=== PATIENT | female | born 1975 | race Caucasian/White ===

== ENCOUNTER → 2018-03-13 18:06 | Outpatient (CLI) | payer BC, SELFPAY ==
[2018-03-13 18:38] LABS: Basophils # 0.1 K/mm3 (0-0.2); Basophils % 0.9 % (0.1-2.0); Eosinophils # 0.2 K/mm3 (0.0-0.4); Eosinophils % 2.2 % (0.1-12.0); Hematocrit 52.1 % (37.0-47.0); Hemoglobin 16.8 g/dL (12.2-16.2); Lymphocytes # 2.4 K/mm3 (0.7-4.5); Lymphocytes % 25.6 % (10-50); Mean Corpuscular HGB Conc 32.2 g/dL (31.8-35.4); Mean Corpuscular Hemoglobin 29.6 pg (27.0-31.2); Mean Platelet Volume 7.2 fl (7.4-10.4); Monocytes # 0.5 K/mm3 (0.1-1.0); Monocytes % 4.7 % (1.7-9.3); Neutrophils # 6.3 K/mm3 (1.8-7.8); Neutrophils % 66.6 % (37.0-80.0); Platelet Count 304 K/mm3 (142-424); Red Blood Count 5.66 M/mm3 (4.20-5.40); Red Cell Distribution Width 13.4 % (11.5-17.5); White Blood Count 9.5 K/mm3 (4.8-10.8)
[2018-03-13 20:16] LABS: Alanine Aminotransferase 105 U/L (12-78); Albumin/Globulin Ratio 1.1 (1.1-1.8); Alkaline Phosphatase 80 U/L (46-116); Aspartate Amino Transferase 47 U/L (15-37); Bilirubin,Total 0.9 mg/dL (0.2-1.0); Blood Urea Nitrogen 7 mg/dL (7-18); Calcium 9.5 mg/dL (8.5-10.1); Carbon Dioxide 24 mmol/L (21.0-32.0); Chloride 102 mmol/L (98-107); Chol/HDL Ratio 5.5 (1-3.5); Cholesterol 197 mg/dL (140-200); Creatinine,Serum 0.94 mg/dL (0.55-1.02); Estimated Glomerular Filt Rate 65 ml/min (>60); Free T4 (Free Thyroxine) 0.95 ng/dl (0.76-1.46); GFR (African American) 79 ML/MIN (>60); Globulin 3.5 gm/dl (1.3-3.2); Glucose 117 mg/dL (74-106); HDL Cholesterol 36 mg/dL (29-89); LDL Cholesterol 114 mg/dL (0-130); Sodium 139 mmol/L (136-145); Thyroid Stimulating Hormone 1.42 uIU/ml (0.358-3.740); Total Protein,Serum 7.5 gm/dL (6.4-8.2); Triglycerides 236 mg/dL (30-200); VLDL Cholesterol 47 mg/dL (0-40)
[2018-03-15 11:45] LABS: Hemoglobin A1C 5.7 % (0.0-7.0)
[2018-03-16 08:47] LABS: Hep A Ab, IgM Negative (Negative); Hepatitis B Core Antibody IgM Negative (Negative); Hepatitis B Surface Antigen Negative (Negative)
[2018-03-16 17:09] LABS: Vitamin D 25 Hydroxy 11.8 ng/mL (30.0-100.0)
[2018-03-16 17:16] LABS: Hepatitis C Antibody <0.1 s/co ratio (0.0-0.9)
== END ==
PROVIDERS: Visit Provider Emergency Medicine
DX: E28.319 Asymptomatic premature menopause (principal); R53.83 Other fatigue; R63.5 Abnormal weight gain
CPT/HCPCS: 80053; 80061; 80074; 82652; 83036; 84439; 84443; 85025

== ENCOUNTER → 2018-08-14 15:58 | Outpatient (CLI) | payer BC, SELFPAY ==
--- NOTE | 2018-08-14 16:01 | MM_ITS ---
MM Dig screening mamm BI w/CAD CAD Screening COMPARISON: Digital mammograms with CAD 04/19/2016 and 01/28/2015 INDICATION: There is no personal or family history of breast cancer. There has been a previous cyst aspiration right breast. TECHNIQUE: Standard CC and MLO images were obtained. R2 CAD reviewed. FINDINGS: Scattered fibroglandular densities are seen throughout both breasts. There is a small area of asymmetric glandular tissue deep within the right breast at the location of the previous cyst aspiration which has no suspicious characteristics. There are no suspicious microcalcifications. IMPRESSION: Fibrofatty parenchyma no suspicious lesion seen BI-RADS Category: 1 Negative RECOMMENDED FOLLOW-UP: 1YR - 1 YEAR FOLLOW-UP (A letter has been sent to the patient regarding results of the study.)
== END ==
PROVIDERS: PCP Emergency Medicine; Visit Provider Obstetrics & Gynecology
DX: Z12.31 Encounter for screening mammogram for malignant neoplasm of breast (principal)
CPT/HCPCS: 77067

== ENCOUNTER → 2018-12-11 17:25 | Outpatient (CLI) | payer BC, SELFPAY ==
[2018-12-11 21:06] LABS: Amphetamine/Metha Screen,Urine Negative ng/mL (<1000); Barbiturates Screen,Urine Negative ng/mL (<200); Benzodiazepines Screen,Urine Negative ng/mL (<200); Cannabinoid Screen,Urine Negative ng/mL (<50); Cocaine Screen,Urine Negative ng/mL (<300); Methadone Screen,Urine Negative ng/mL (<300); Opiate Screen,Urine Negative ng/mL (<300); Phencyclidine Screen,Urine Negative ng/mL (<25)
== END ==
PROVIDERS: Visit Provider Nurse Practitioner Family
DX: F41.9 Anxiety disorder, unspecified (principal)
CPT/HCPCS: 80305

== ENCOUNTER 2020-01-24 12:35 | Emergency (ER) | payer BC, SELFPAY ==
[2020-01-24 13:30] VITALS: BP 134/94; PULSE 125; RESP 20; TEMP 36.9; O2SAT 97; BMI 32.3
--- NOTE | 2020-01-24 13:45 | HMH.EDUTC ---
[facility] [place] Impression: Nasal drainage Allergic rhinitis Qualifiers: Allergic rhinitis trigger: unspecified Allergic rhinitis seasonality: unspecified Qualified Code(s): J30.9 - Allergic rhinitis, unspecified Disposition: Home, Self-Care Condition on Discharge: Good Instructions: Allergic Rhinitis, DI for Allergic Rhinitis Additional Instructions: Drink plenty of fluids. Take tylenol for pain or fever. Take the medications as directed. Follow up with your regular doctor. GO TO THE ER FOR ANY WORSENING SYMPTOMS Prescriptions: Fluticasone Propionate [Flonase 50mcg nasal spray 16gm] 1 spr NS BID 30 Days #1 bottle Transmission Status: Received by [employer] predniSONE [Prednisone 20mg Tab] 20 mg PO BID 4 Days #8 tab Transmission Status: Received by [employer] Referrals: Sixto Rosen MD [Primary Care Provider] - Time of Disposition: 13:53 Medical Decision Making - Medical Records Medical records reviewed: No: I reviewed the patient's medical records. - Chris Inquiry Pt receiving controlled substance: No Vital Signs: 01/24/20 13:30 01/24/20 14:08 Temperature 98.4 F 98.4 F Temperature Source Oral Pulse Rate 125 H Pulse Rate [Right Brachial] 125 H Respiratory Rate 20 20 Blood Pressure 134/94 H Blood Pressure [Right Arm] 134/94 H Blood Pressure Mean [Right Arm] 107 Blood Pressure Source [Right Arm] Automatic Cuff Blood Pressure Position [Right Arm] Sitting 02 Sat by Pulse Oximetry 97 Oxygen Delivery Method Room Air [facility] [place] - General Stated complaint: Sinus issues Time Seen by Provider: 01/24/20 13:45 Mode of Arrival: Ambulatory Source of Information: Patient Limitations: No Limitations Description of Symptoms (Recalled from Triage Doc. by RN): PATIENT C/O EXCESSIVE CLEAR DRAINAGE FROM LEFT SIDE OF NOSE SINCE 01/12. SHE RECENTLY FINISHED AN ANTIBIOTIC FOR THIS PROBLEM BUT STATES IT IS NOT BETTER HEENT Symptoms (Recalled from RN notes): Yes Resp Symptoms (Recalled from RN notes): No Skin Symptoms (Recalled from RN notes): No MS Symptoms (Recalled from RN notes): No Functional Status (Recalled from RN notes): WNL - History of Present Illness Provider Complaint: She complains of nasal drainage over the past 2 weeks. She has taken azithromycin pack and it has not helped. She states that the drainage is clear. She denies any fever or chills or cough. - Related Data Previous Rx's Medication Instructions Recorded Fluticasone Propionate [Flonase 1 spr NS BID 30 Days #1 bottle 01/24/20 50mcg nasal spray 16gm] predniSONE [Prednisone 20mg 20 mg PO BID 4 Days #8 tab 01/24/20 Tab] Allergies Allergy/AdvReac Type Severity Reaction Status Date / Time No Known Allergies Allergy Verified 07/15/19 13:36 - Worker's Comp Is this a Worker's Comp case?: Yes [facility] History - Hepatitis A Screen Drug use history?: No High risk sexual behaviors?: No History of sexually transmitted infection?: No Currently employed?: No Childcare worker?: No Do you have indoor plumbing?: Yes Do you have electricity?: Yes Attestation statement:: This patient has been screened for Hepatitis A risk factors. I have reviewed the patient's past medical history: Yes Medical History: Reports:: Anxiety Other Medical History: Reports: Hypothyroidism, Other Comment: Endometriosis, vitamin d Other Surgeries: Yes: Other Amputation: No Fractures: No Comment: 2013- Dx. HSC, Fx. D&C, Dx. LSC, ADDIE - Social History Smoking Status: Current every day smoker # Packs/Day (cigarettes): 1 Alcohol Intake: never Alcohol Intake Frequency:: other Substance Use Type: denies use Occupational Status: other Housing: house Household Members: family - Psychiatric History Pschychiatric History:: Reports:: Anxiety Family Hx:: Coronary Artery Disease, Hypertension, Cancer ROS Obtained: Yes All systems reviewed & no additional complaints -
[2020-01-24 14:08] VITALS: BP 134/94; PULSE 125; RESP 20; TEMP 36.9; O2SAT 97
== END 2020-01-24 14:10 | disposition home or self-care (01) ==
PROVIDERS: Emergency Provider Nurse Practitioner Family; PCP Emergency Medicine
DX: R09.82 Postnasal drip (principal); J30.9 Allergic rhinitis, unspecified
CPT/HCPCS: 99201; U0003

== ENCOUNTER → 2020-02-03 14:56 | Outpatient (CLI) | payer BC, SELFPAY ==
--- NOTE | 2020-02-03 15:03 | CT_ITS ---
PROCEDURE: CT HEAD/BRAIN WO/W CON CLINICAL INDICATION: clear fluid drainaing from nose Clear fluid draining from the nose COMPARISON: No exams were available for comparison TECHNIQUE: IV Contrast: 100ML Isovue 370 Axial images obtained. All CT scans at the facility use one or more dose reduction, viz: automated exposure control, ma/kV adjustment per patient size (including targeted exams where dose is matched to indication, i.e. head), or iterative reconstruction technique. FINDINGS: No midline shift, mass effect, intracranial hemorrhage, hydrocephalus, or extra-axial fluid collection is evident. No enhancing lesions are evident. The calvarium has an unremarkable appearance. There is mild mucosal thickening involving the left maxillary sinus inferiorly and also involving the ethmoid sinuses. There is an air-fluid level in the left sphenoid sinus. No mastoid effusion is evident. IMPRESSION: 1. No acute intracranial findings. 2. There is an air-fluid level in the sphenoid sinus on the left. This could be seen with sequela from CSF rhinorrhea. Dedicated CT of the facial bones and skull base with thin sections may provide further evaluation to look for any bony defects which may be seen with CSF rhinorrhea. The current study was scanned by the routine head CT protocol. Dictated by: Marcos Moreno MD 02/03/2020 16:34 Marcos Moreno MD in [facility] 02/03/2020 16:34
== END ==
PROVIDERS: PCP Emergency Medicine; Visit Provider Otolaryngology
DX: G96.01 Cranial cerebrospinal fluid leak, spontaneous (principal)
CPT/HCPCS: 70470; Q9967

== ENCOUNTER → 2020-02-04 10:34 | Outpatient (CLI) | payer BC, SELFPAY ==
--- NOTE | 2020-02-04 10:41 | CT_ITS ---
PROCEDURE: CT FACIAL BONES WO/W CON CLINICAL HISTORY: CSF rhinorrhea COMPARISON: No exams were available for comparison TECHNIQUE: Axial images obtained with sagittal and coronal reformats. All CT scans at the facility use one or more dose reduction, viz: automated exposure control, ma/kV adjustment per patient size (including targeted exams where dose is matched to indication, i.e. head), or iterative reconstruction technique. FINDINGS: Thin-section axial images are obtained of the facial bones and skull base in this patient with CSF rhinorrhea. Air-fluid levels are present within the left aspect of the sphenoid sinus. No sinus or skull base fracture is evident. There is mild rightward nasal septal deviation. Small septal spur projects toward the right. Post enhanced images are obtained showing no evidence of abnormal enhancement or abnormal contrast localization/extravasation. No displaced cribriform plate fractures are apparent. No bony abnormal outpouchings. There is mucosal thickening involving the medial ethmoid air cells on the right IMPRESSION: 1. Air-fluid levels within the left sphenoid sinus. No bony defects apparent within the skull base or facial bones. 2. Mild mucosal thickening right ethmoid sinus with rightward nasal septal deviation. Dictated by: Marcos Moreno MD 02/04/2020 11:37 Marcos Moreno MD in [facility] 02/04/2020 11:37
== END ==
PROVIDERS: PCP Emergency Medicine; Visit Provider Otolaryngology
DX: G96.01 Cranial cerebrospinal fluid leak, spontaneous (principal)
CPT/HCPCS: 70488; Q9967

== ENCOUNTER → 2020-07-06 12:45 | Outpatient (CLI) | payer BC, SELFPAY ==
--- NOTE | 2020-07-06 12:45 | MM_ITS ---
PROCEDURE: MM DIG SCREENING MAMM BI W/CAD Digital Breast Tomosynthesis Included CLINICAL INDICATION: Breast cancer screening COMPARISON: MG DIG MAMM-SCREEN RONIT from 08/14/2018 TECHNIQUE: Standard CC and MLO images and 3D Tomosynthesis was obtained. R2 CAD reviewed. FINDINGS: The breasts are composed of scattered fibroglandular tissue. There is a focal nodular appearing density noted in the left central breast 4 centimeters from the nipple, new compared to the prior study. Slightly lobulated margins are noted. Bilateral mole markers are noted. No other dominant mass lesion, suspicious calcification or architectural distortion. IMPRESSION: Focal nodular appearing density in the left central breast, 4 centimeters from the nipple. BI-RAD Category: 0 Need Additional Imaging Evaluation FOLLOW-UP: Spot compression views and ultrasound of the left breast. (A letter has been sent to the patient regarding results of the study.) Dictated by: Keyanna Tabares 07/07/2020 16:04 Keyanna Tabares in [facility] 07/07/2020 16:04
== END ==
PROVIDERS: PCP Emergency Medicine; Visit Provider Emergency Medicine
DX: Z12.31 Encounter for screening mammogram for malignant neoplasm of breast (principal)
CPT/HCPCS: 77063; 77067

== ENCOUNTER → 2020-07-17 13:36 | Outpatient (CLI) | payer BC, SELFPAY ==
--- NOTE | 2020-07-17 13:41 | US_ITS ---
PROCEDURE: MM DIG MAMM DX UNILAT LT CAD Digital Breast Tomosynthesis Included Left breast ultrasound CLINICAL INDICATION: NODULES ON LT BREAST COMPARISON: MG DMSB DIG MAMM-SCREEN RONIT W/CAD from 04/19/2016 MG DIG MAMM-SCREEN RONIT from 08/14/2018 MG MM DIG SCREENING MAMM BI W/CAD from 07/06/2020 US US BREAST LT COMPLETE from 07/17/2020 TECHNIQUE: Diagnostic left breast mammogram and left breast ultrasound FINDINGS: Average fibroglandular tissue. There is a 1.2 cm benign-appearing nodule 4 cm posterior to the nipple. There is some minimal nodularity along the posterior aspect of this dominant nodule. This is in the medial aspect of the left breast. Nodule is fairly well-circumscribed without calcifications Left breast ultrasound: There is an 11 mm cyst at the 12 o'clock region near the nipple with some lobularity of the margins corresponding to the mammographic abnormality. No other significant anomalies are evident. IMPRESSION: Left breast nodule corresponds to a benign-appearing cyst. Would suggest a six-month sonographic and mammographic follow-up as there is some nodularity along the dorsal aspect of the nodule on the mammogram but could be related overlying fibroglandular tissue. BI-RAD Category: 3 Probably Benign Finding Short Term Follow-Up FOLLOW-UP: 6M 6 Month Follow-up (A letter has been sent to the patient regarding results of the study.) Dictated by: Marcos Moreno MD 07/20/2020 11:49 Marcos Moreno MD in [facility] 07/20/2020 11:49
== END ==
PROVIDERS: PCP Emergency Medicine; Visit Provider Emergency Medicine
DX: R92.8 Other abnormal and inconclusive findings on diagnostic imaging of breast (principal); N63.20 Unspecified lump in the left breast, unspecified quadrant
CPT/HCPCS: 76641; 77061; 77065; G0279

== ENCOUNTER → 2021-03-19 08:32 | Outpatient (CLI) | payer BC, SELFPAY | PROVIDERS: Visit Provider Nurse Practitioner | DX: U07.1 COVID-19 (principal) | CPT/HCPCS: C9803; U0003; U0005 ==

== ENCOUNTER 2021-09-20 11:01 | Emergency (ER) | payer BC, SELFPAY ==
--- NOTE | 2021-09-20 11:03 | XR_ITS ---
FINAL REPORT CLINICAL HISTORY: pain FINDINGS: Three views of the right shoulder were obtained. There is no prior exam for comparison. There is no fracture or dislocation. The joint space is preserved. Soft tissues are normal. IMPRESSION: No acute osseous abnormality of the right shoulder. Reviewed, Interpreted and Dictated by Kiara Ramirez MD Transcribed by Mahsa Ramey Authenticated and . [facility]
[2021-09-20 11:08] VITALS: BMI 32.3
[2021-09-20 11:20] VITALS: BP 151/97; PULSE 107; RESP 20; TEMP 36.9; O2SAT 97; BMI 32.3
--- NOTE | 2021-09-20 11:44 | HMH.EDUTC ---
[facility] [place] Disposition Clinical Impression: Shoulder strain Qualifiers: Encounter type: initial encounter Laterality: right Qualified Code(s): S46.911A - Strain of unspecified muscle, fascia and tendon at shoulder and upper arm level, right arm, initial encounter Disposition: Home, Self-Care Condition on Discharge: Good Instructions: Muscle Strain, DI for Muscle Strain, Cyclobenzaprine, Ibuprofen Additional Instructions: *Ibuprofen stephany 6 hours with meal as needed for pain/inflammation *Not additional anti-inflammatory like motrin, aleve, advil with the above amount of ibuprofen. You can still take Tylenol every 4 hours as needed if you need something else for pain *Ice 20 minutes every 2 hours for the first 48 hours after the initial injury followed by moist heat every 20 minutes 3-4 times a day to affected area *Muscle relaxer every 8 hours as needed for muscle spasms but remember, it WILL cause drowsiness You cannot take it and drive, operate machinery or care for small children. *Keep this area active, no movement leads to more stiffness, However take it easy and avoid heavy lifting pushing or pulling *Follow up with you family doctor if no improvement for further treatment Return if needed Straight to ER if any life threatening symptoms Prescriptions: Ibuprofen [Ibuprofen 600mg Tablet] 600 mg PO Q6HP PRN #20 tab PRN Reason: Moderate Pain Transmission Status: Pending to [facility] Cyclobenzaprine HCl [Flexeril 10mg tablet] 10 mg PO Q8HP PRN #15 tab PRN Reason: Muscle Spasm Transmission Status: Pending to [facility] Referrals: Sixto Rosen MD [Primary Care Provider] - As needed Time of Disposition: 11:52 Medical Decision Making - Chris Inquiry Pt receiving controlled substance: No Chris was queried for this patient: No Vital Signs: 09/20/21 11:20 Temperature 98.4 F Temperature Source Oral Pulse Rate [Right Brachial] 107 H Respiratory Rate 20 Blood Pressure [Right Arm] 151/97 H Blood Pressure Mean [Right Arm] 115 Blood Pressure Source [Right Arm] Automatic Cuff Blood Pressure Position [Right Arm] Sitting 02 Sat by Pulse Oximetry 97 Oxygen Delivery Method Room Air Orders (Tests/Meds): ORDERS Category Date Time Status Shoulder XR right miminum 2 views [XR shoulder RT min Exams 09/20/21 11:03 Taken 2V] Stat - Radiology Data #1 Image(s): Shoulder Image Reviewed: Yes I reviewed the patient's radiology image Preliminary Findings: No Fracture Seen Medical Decision Narrative: Denies chance of [facility] [place] HPI - General Stated complaint: shoulder pain Time Seen by Provider: 09/20/21 11:40 Mode of Arrival: Ambulatory Source of Information: Patient Limitations: No Limitations Description of Symptoms (Recalled from Triage Doc. by RN): PATIENT C/O RIGHT SHOULDER PAIN SINCE MONDAY. SHE THINKS SHE MAY HAVE PULLED SOMETHING HEENT Symptoms (Recalled from RN notes): No Resp Symptoms (Recalled from RN notes): No Skin Symptoms (Recalled from RN notes): No MS Symptoms (Recalled from RN notes): Yes Functional Status (Recalled from RN notes): WNL - History of Present Illness Provider Complaint: Patient states that she was opening the bathroom door at [facility] on when she felt something lesly in her right shoulder area States that now she is having pain on and off in right shoulder and worse with certain ways she moves it States that today it was still bothering her so she came in to get it checked - Related Data Previous Rx's Medication Instructions Recorded clobetasol 0.05 % topical cream 1 applic TOPICAL DAILY #60 g 07/30/20 Cyclobenzaprine HCl [Flexeril 10mg 10 mg PO Q8HP PRN #15 tab 09/20/21 tablet] Ibuprofen [Ibuprofen 600mg 600 mg PO Q6HP PRN #20 tab 09/20/21 Tablet] Allergies Allergy/AdvReac Type Severity Reaction Status Date / Time No Known Allergies Allergy Verified 07/30/20 13:28 - Worker's Comp
[2021-09-20 11:58] VITALS: BP 151/97; PULSE 107; RESP 20; TEMP 36.9; O2SAT 97
== END 2021-09-20 12:04 | disposition home or self-care (01) ==
PROVIDERS: Emergency Provider Nurse Practitioner; PCP Emergency Medicine
DX: S46.911A Strain of unspecified muscle, fascia and tendon at shoulder and upper arm level, right arm, initial encounter (principal); X50.9XXA Other and unspecified overexertion or strenuous movements or postures, initial encounter
CPT/HCPCS: 73030; 99212; G0463

== ENCOUNTER → 2022-04-14 12:55 | Outpatient (CLI) | payer BC, SELFPAY ==
--- NOTE | 2022-04-14 12:55 | MM_ITS ---
PROCEDURE INFORMATION: Exam: MG Bilateral Screening 3D Mammography Exam date and time: 04/14/2022 12:50 PM Age: 46 years old Clinical indication: Screening examination TECHNIQUE: Imaging protocol: Bilateral Screening tomosynthesis and 2D mammography including computer-aided detection (CAD) when performed. COMPARISON: 1. MG MM DIG MAMM DX UNILAT LT CAD 07/17/2020 2:00 PM 2. MG MM DIG SCREENING MAMM BI W/CAD 07/06/2020 1:00 PM FINDINGS: MAMMOGRAPHY: Breast composition: The breasts are almost entirely fatty. Mass: None. Architectural distortion: None. Calcifications: No suspicious calcifications. Asymmetric density: None. Skin thickening: None. Axillary adenopathy: None. IMPRESSION: No mammographic evidence of malignancy. Annual screening is recommended unless otherwise clinically indicated. ASSESSMENT: BI-RADS Category 1: Negative
== END ==
PROVIDERS: PCP Physician Assistant; Visit Provider Obstetrics & Gynecology
DX: Z12.31 Encounter for screening mammogram for malignant neoplasm of breast (principal)
CPT/HCPCS: 77063; 77067

== ENCOUNTER → 2022-04-18 14:35 | Outpatient (CLI) | payer BC, SELFPAY ==
[2022-04-20 05:29] LABS: FSH 7.6 mIU/mL (.)
== END ==
PROVIDERS: PCP Emergency Medicine; Visit Provider Obstetrics & Gynecology
DX: Z01.419 Encounter for gynecological examination (general) (routine) without abnormal findings (principal); N91.2 Amenorrhea, unspecified
CPT/HCPCS: 36415; 82670; 83001

== ENCOUNTER 2022-11-11 04:37 | Emergency (ER) | payer BC, SELFPAY ==
[2022-11-11 04:38] VITALS: BP 170/91; PULSE 140; RESP 20; O2SAT 95; BMI 33.9
--- NOTE | 2022-11-11 05:18 | HMH.EDGENADL ---
Discharge Plan Disposition Patient Disposition: Home, Self-Care Condition: Good Prescriptions Prescriptions: No Action sulfamethoxazole-trimethoprim [Bactrim DS] 800-160 mg tablet 1 tab PO Q12H 10 Days Qty: 20 0RF ibuprofen 600 mg tablet 600 mg PO Q6HP PRN (Reason: Moderate Pain) Qty: 20 0RF Referrals Follow up/Referrals: Sixto Rosen MD [Primary Care Provider] - See instructions Activity Restrictions/Add. Instructions Additional Instructions/Restrictions: Please continue taking antibiotics as prescribed. Recommend following up with [facility]. Please keep packing in place for 2 days. If it is still in place at that time please remove it. Please follow-up with your primary care provider. Please return to the emergency department if you develop any new or worsening symptoms or become concerned for your health. Clinical Impressions Clinical Impression: Abscess of left Bartholin's gland Instructions Patient Instructions: DI for Urinary Tract Infection (UTI), DI for Urinary Tract Infection in Children Discharge ED Provider: Jay Villa Adult HPI General Chief complaint: Urogenital-Female Stated complaint: vaginal pain Time Seen by Provider: 11/11/22 04:40 Mode of Arrival: Ambulatory Source of Information: Patient Limitations: No Limitations Description of Symptoms (Recalled from ER Triage Doc. by RN): Pt states she has a boil on her labia, was seen by Dr Pelaez on Monday and given abx. Pt complains of increased pain History of Present Illness HPI narrative: 47-year-old female presents with vaginal complaint. She reports that she has a bulge and severe pain in her left labia. She was seen by [facility] on Monday and was offered drainage versus antibiotic therapy. She did not receive drainage and has been taking Bactrim as prescribed for the last couple of days without improvement. No reported fever or systemic symptoms. She reports nothing like this is happened before. Related Data Previous Rx's Medication Instructions Recorded ibuprofen 600 mg tablet 600 mg PO Q6HP PRN Moderate Pain 09/27/21 #20 tabs sulfamethoxazole 800 1 tab PO Q12H 10 days #20 tabs 11/09/22 mg-trimethoprim 160 mg tablet (Bactrim DS) Allergies Allergy/AdvReac Type Severity Reaction Status Date / Time No Known Allergies Allergy Verified 11/09/22 11:36 [facility] Disclaimer: The information contained in this section may have been updated after the patient was seen, as this information can be updated by other users. Medical History Abscess of vagina Allergic rhinitis Anxiety History of endometriosis Vitamin D deficiency Surgical History History of nasal surgery CSF leak Family History Mother Cancer Coronary artery disease Father Cancer Other Stroke Social History Smoking Status: Current every day smoker alcohol intake: never substance use type: denies use current occupational status: other Travel in the last 8 weeks: None household members: family housing: house ROS Obtained: Yes All systems reviewed & no additional complaints except as documented Physical Exam General General appearance: alert and anxious Head Head exam: atraumatic and normocephalic Eye Eye exam: Present normal appearance, PERRL and EOMI ENT ENT exam: Present normal oropharynx and normal external ear exam Neck Neck exam: Present normal inspection and full ROM Chest Chest inspection: Present normal inspection and symmetric chest wall rise; Absent tenderness Respiratory Respiratory exam: Present normal lung sounds bilaterally; Absent respiratory distress Cardiovascular Cardiovascular exam: Present regular rate and normal rhythm Abdominal Exam Abdominal exam: Present soft; Ab
[2022-11-11 05:19] VITALS: BP 168/72; PULSE 94; RESP 20; TEMP 36.6; O2SAT 100
== END 2022-11-11 05:23 | disposition home or self-care (01) ==
PROVIDERS: Emergency Provider Emergency Medicine; PCP Emergency Medicine
DX: N75.1 Abscess of Bartholin's gland (principal); F41.9 Anxiety disorder, unspecified; F17.200 Nicotine dependence, unspecified, uncomplicated
CPT/HCPCS: 56420; 99282

== ENCOUNTER 2023-08-04 12:57 | Outpatient (CLI) | payer BC, SELFPAY ==
--- NOTE | 2023-08-04 12:58 | MM_ITS ---
PROCEDURE INFORMATION: Exam: MG Bilateral Screening 3D Mammography Exam date and time: 08/04/2023 12:50 PM Age: 48 years old Clinical indication: Screening examination TECHNIQUE: Imaging protocol: Bilateral Screening tomosynthesis and 2D mammography including computer-aided detection (CAD) when performed. COMPARISON: 1. MG MM DIG SCREENING MAMM BI W/CAD 04/14/2022 12:50 PM 2. MG MM DIG MAMM DX UNILAT LT CAD 07/17/2020 2:00 PM FINDINGS: MAMMOGRAPHY: Breast composition: There are scattered areas of fibroglandular density. Mass: None. Architectural distortion: None. Calcifications: No suspicious calcifications. Asymmetric density: None. Skin thickening: None. Axillary adenopathy: None. IMPRESSION: No mammographic evidence of malignancy. Annual screening is recommended unless otherwise clinically indicated. ASSESSMENT: BI-RADS Category 1: Negative
== END 2023-08-04 23:59 | disposition home or self-care (01) ==
LOC: RAD 12:58
PROVIDERS: PCP Physician Assistant; Visit Provider Obstetrics & Gynecology
DX: Z12.31 Encounter for screening mammogram for malignant neoplasm of breast (principal)
CPT/HCPCS: 77063; 77067

== ENCOUNTER 2023-09-20 13:33 | Outpatient (RCR) | payer BC, SELFPAY ==
--- NOTE | 2023-09-20 14:40 | HMH.PTOPEV ---
PT Outpatient Evaluation Rehab PT Outpatient Evaluation Start: 09/20/23 14:31 Freq: Status: Active Protocol: Document 09/20/23 14:32 PHOLUZ (Rec: 09/20/23 14:40 PHORMICHAEL [id number]) E-signed By Ta Sanchez, PT Outpatient Therapy Subjective History Subjective History This is the initial PT eval for Stefania Nguyen, 48 yowf who presents with c/o feeling dizzy and off balance all the time. She reports symptoms have been present x ~ 10 yrs overall and intermittently worse. She reports having some form of infection on the R side of her face/neck with considerable swelling which was initially thought to be mumps, prior to the start of these symptoms. 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 She reports the symptoms are worse with her eyes closed or laying down in bed. And she described a sensation of off balance without any vertigo or nausea associated. New diagnosis of cancer in past 12 No months? Chief Complaint Other Level of pain today (0-10) 0 Pain scale - at its worst (0-10) 0 Balance Eval Nystagmus Nystagmus Presence None Oculomotor Gaze Oculomotor Gaze Nml: Vergence Smooth Pursuit Saccades VOR Cancellation Cover/Uncover Cross Cover [place] Feet Together/Eyes open/Stable Surface pass Feet Together/Eyes Closed/Stable Surface pass Feet Together/Eyes open/Unstable Surface pass Feet Together/Eyes Closed/Unstable pass Surface Dynamic Gait Index Test Protocol Gait Level Surface Normal Query Text: Instructions: Walk at your normal speed from here to the next mee (20'). Grading: Mee the lowest category that applies. Change in Gait Speed Normal Query Text: Instructions: Begin walking at your normal pace (for 5'), when I tell you go , walk as fast as you can (for 5'). When I tell you slow , walk as slowly as you can (for 5'). Grading: Mee the lowest category that applies. Gait with Horizontal Head Turns Normal Query Text: Instructions: Begin walking at your normal pace. When I tell you to look right , keep walking straight, but turn you head to the right. Keep looking to the right unit I tell you look left , then keep walking straight and turn your head to the left. Keep your head to the left until I tell you look straight , then keep walking straight, but return you head to the center. Grading: Mee the lowest category that applies. Gait with Vertical Head Turns Normal Query Text: Instructions: Begin walking at your normal pace. When I tell you to look up , keep walking staight, but tip your head up. Keep looking up until I tell you to look down , then keep walking straight and tip your head down. Keep your head down until I tell you look straight , then keep walking straight, but return your head to the center. Grading: Mee the lowest category that applies. Gait and Pivot Turn Normal Query Text: Instructions: Begin walking at your normal pace. When I tell you turn and stop , turn as quickly as you can to face the opposite direction and stop. Grading: Mee the lowest category that applies. Step Over Obstacle Normal Query Text: Instructions: Begin walking at your normal speed. When you come to the shoebox, step over it, not around it and keep walking. Grading: Mee the lowest category that applies. Step Around Obstacles Normal Query Text: Instructions: Begin walking at normal speed. When you come to the first cone (about 6' away), walk around the right side of it. When you come to the second cone (6' past first cone), walk around it to the left. Grading: Mee the lowest category that applies. Steps Normal Query Text: Instructions: Walk up these stairs as you would at home. At the top, turn around and walk down. Grading: Mee the lowest category that applies. Scoring Dynamic Gait Index Score 24 Miscellaneous Dx PT Eval Objective Objective [place] hallpike and horizontal roll testing performed with no nystagmus noted. No symptoms reproduction with any certain position or occulomotor testing this date. Outpatient Therapy Assessment Impairments Problems/Impairmments Impaired Balance,Impaired Self Care/Self Management Prognosis Rehab Potential Innapropriate for Skilled Therapy Comment Currently unable to reproduce pt symptoms with any vestibular testing available to myself at this time. No current needs for outpatient therapy for vestibular retraining. Clinical Impression Consistent with Diagnosis Yes Outpatient Therapy Plan of Care Treatment Plan May Include Eval/Re-Eval Yes Frequency Times per week 0 Duration Number of Weeks 0 Addendums This patient is a candidate for social No or vocational rehab? Patient/Guardian verbally acknowledges Yes understanding of treatment program and consents to further treatment? Patient/Guardian verbally acknowledges Yes understanding of diagnosis, prognosis and goals for treatment? Eval Complexity PT Charges 51764 - High Complexity Shoulder/Elbow Eval Shoulder Objective Measurements Elbow Objective Measurements PHYSICIAN CERTIFICATION: I certify the specified therapy services for Stefania Nguyen are required, authorized, and reviewed every 30 days.
== END 2023-09-20 13:35 | disposition home or self-care (01) ==
LOC: PT 13:33
PROVIDERS: Visit Provider Nurse Practitioner
DX: R42 Dizziness and giddiness (principal)
CPT/HCPCS: 97163

== ENCOUNTER 2024-09-25 11:07 | Outpatient (CLI) | payer MEDICAID, SELFPAY ==
--- OUTSIDE RECORDS SUMMARY | 2024-09-25 11:10 | XMS_ITS | Clinical Summary ---
Author Organization [facility] Address [address] [id number] Care Team Providers Care Venetian Blind Cleaner Name Role Phone Sixto Rosen MD Primary Care Provider [phone] Allergies No known active allergies Medications No known medications Active Problems Problem Noted Date Diagnosed Date Obesity (BMI 35.0-39.9 without comorbidity) 10/29 Severe obesity (BMI 35.0-39.9) with comorbidity 11/22/2023 Family History Medical History Relation Name Comments Cancer Father Relation Name Status Comments Father Social History Tobacco Use Types Packs/Day Years Used Date Smoking Tobacco: Every Day Smokeless Tobacco: Never Tobacco Cessation:Ready to Q uit: Not Asked; Counseling Given: Not Answered Alcohol Use Standard Drinks/Week Comments No 0 (1 standard drink = 0.6 oz pur e alcohol) Comments Unknown Sex and Gender Information Value Date Recorded Sex Assigned at Female 03/06/2021 6:41 PM EST Legal Sex Female 8:04 PM EDT Gender Identity Female 03/06/2021 6:41 PM EST Sexual Orientation Straight 03/06/2021 6: 41 PM EST Last Filed Vital Signs Vital Sign Reading Time Taken Comments Blood Pressure 151/94 09/26/2022 8:49 AM EDT Pulse 101 09/26/2022 8:49 AM EDT Temperature - - Respiratory Rate - - Oxygen Saturation 100% 04/02/2020 1:21 PM EST Inhaled Oxygen Concentration - - Weight 99.8 kg (220 lb) 11/22/2023 1:36 PM EDT Height 167.6 cm (5' 6 ) 11/22/2023 1:36 PM EDT Body Mass Index 35.51 11/22/2023 1:36 PM EDT Plan of Treatment Health Maintenance Due Date Last Done Comments [facility]-Depression Screening 1975 [facility]-HIV Screening 1975 [facility]-Hepatitis C Screening 1975 [facility]-/Child/Adol SDOH Screenings 1975 [facility]- SDOH Screenings 07/28/1993 [facility]-Adult SDOH Screenings 07/28/1993 [facility]-DTaP,Tdap,and Td Vaccine s (1 - Tdap) 07/28/1994 [facility]-Hepatitis B Vaccines (1 of 3 - 19+ 3-dose series) 07/28/1994 [facility]-Pneumococcal Vaccine: Pediatrics (0 to 5 Years) and At-Risk Patients (6 to 49 Years) (1 of 2 - PCV) 07/28/1994 [facility]-Pap Smear 07/28/1996 [facility]-Cervical Cancer Screening 07/28/2005 [facility]-HPV/Cotest 07/28/2005 CT Colonography 07/28/2020 Colonoscopy 07/28/2020 FIT-DNA 07/28/2020 FIT 07/28/2020 FOBT 07/28/2020 Sigmoidoscopy 07/28/2020 [facility]-Colorectal Cancer Screening 07/28/2020 [id number] Vaccine ( season) 2023 11/20/2020, 10/30/2020 [facility]-Influenza Vaccine (#1) 10/28/202412/11, 03/13/2018 [facility]-Zoster Vaccines (1 of 2) 07/28/2025 [facility]-Obesity Intervention Completed 024, 09/26/2022 HPV Vaccines Aged Out No longer eligi ble based on patient's age to complete this topic [facility]-HIB Vaccines Aged Out No longer e ligible based on patient's age to complete this topic [facility]-Hepatitis A Vaccines Aged Out No longer eligible based on patient's age to complete this topic [facility]-IPV Vaccines Aged Out No longer e ligible based on patient's age to complete this topic [facility]-Rotavirus Vaccines Aged Out No lo nger eligible based on patient's age to complete this topic Care Teams Venetian Blind Cleaner Relationship Specialty Start Date End Date Sixto Rosen MD [address] [place] [id number] [facility] - General 07/10/20
--- OUTSIDE RECORDS SUMMARY | 2024-09-25 11:10 | XMS_ITS | Clinical Summary ---
Author Organization [facility] Address [address] [place] [address] Care Team Providers Care Cardroom Plastic Card Grader Name Role Phone Sixto Rosen MD Primary Care Provider [phone] Source Comments This information has been disclosed to you from confidential records protectedfrom disclosure by state law. You shall make no further disclosure of thisinformation without the specific, written, and informed release of theindividual to whom it pertains, or as otherwise permitted by law. A generalauthorization for the release of medical or other information is not sufficientfor the purposes of therelease of HIV test results or diagnoses. [id number] Allergies No known active allergies Medications clobetasoL (TEMOVATE) 0.05 % cream 01/20/2020 Active fluticasone propionate (FLONASE) 50 mcg/actuation nasal spray 01/24/2020 Active hydrOXYzine pamoate (VISTARIL) 25 MG capsule 09/20/2019 Activ e loratadine (CLARITIN) 10 mg tablet 01/31/2020 Active predniSONE (DELTASONE) 20 MG tablet 01/24/2020 Active cefdinir (OMNICEF) 300 MG capsule 01/31/2020 Acti ve Social History Tobacco Use Types Packs/Day Years Used Date Smoking Tobacco: Every Day Cigarettes Smokeless Tobacco: Never Alcohol Use Standard Drinks/Week Comments Not Currently 0 (1 standard drink = 0.6 oz pur e alcohol) Comments Unknown Sex and Gender Information Value Date Recorded Sex Assigned at Not on file Legal Sex Female 4:10 PM EST Gender Identity Not on file Sexual Orientation Not on file Last Filed Vital Signs Vital Sign Reading Time Taken Comments Blood Pressure 132/97 02/13/2020 3:55 PM EST Pulse 118 02/13/2020 3:55 PM EST Temperature 37.1 C (98.8 F) 02/13/2020 3:55 PM EST Respiratory Rate 16 02/13/2020 3:55 PM EST Oxygen Saturation 97% 02/13/2020 3:55 PM EST Inhaled Oxygen Concentration 97% 02/13/2020 3 :55 PM EST Weight 90.3 kg (199 lb) 02/13/2020 3:55 PM EST Height 172.7 cm (5' 8 ) 02/13/2020 3:55 PM EST Body Mass Index 30.26 02/13/2020 3:55 PM EST Plan of Treatment Not on file Care Teams Cardroom Plastic Card Grader Relationship Specialty Start Date End Date Sixto Rosen MD [address] [place] [address] PCP - General Emergency Medicine 02/04/20
[2024-09-25 12:50] LABS: 25-OH Vitamin D, Total 29.5 ng/mL (30-100)
[2024-09-25 13:05] LABS: Thyroid Stimulating Hormone 0.94 uIU/mL (0.465-4.68)
[2024-09-26 11:22] LABS: FSH 19.3 mIU/mL (.); LH 22.4 mIU/mL (.)
== END 2024-09-25 23:59 | disposition home or self-care (01) ==
LOC: LAB 11:08
PROVIDERS: Visit Provider Obstetrics & Gynecology
DX: N93.9 Abnormal uterine and vaginal bleeding, unspecified (principal)
CPT/HCPCS: 36415; 82306; 82670; 83001; 83002; 84144; 84402; 84443

== ENCOUNTER 2024-10-07 07:58 | Outpatient (CLI) | payer MEDICAID, SELFPAY ==
--- NOTE | 2024-10-07 08:00 | US_ITS ---
PROCEDURE: US TRANSVAGINAL CLINICAL INDICATION: AUB COMPARISON: No exams were available for comparison FINDINGS: Transvaginal sonographic images of the pelvis were obtained. UTERUS: 6.1cm x 5.0cmx 4.3cm retroverted with a combined endometrial thickness of 2.2mm. There is a small anterior fibroid measuring 0.9 cm x 0.5 cm x 0.8 cm. LEFT OVARY: 1.9 cmx2.3cmx2.4cm with a volume of 5.4ml. There is a dominant follicle measuring 1.6 cm x 1.6 cm x 2.1 cm RIGHT OVARY: 3.1cmx 1.9 cmx1.4cm with a volume of 4.4ml. Both ovaries are seen and appear normal. Doppler flow to both ovaries are seen. There is no fluid in the cul-de-sac. IMPRESSION: 1. Retroverted uterus normal in shape and size. The endometrium is thin measuring 2.2 mm. 2. There is a small 0.9 cm intramural fibroid in the anterior uterus. 3. Both ovaries are seen and appear normal. There is a dominant follicle in the left ovary measuring 2.1 cm. 4. No fluid in the cul-de-sac. Dictated by: Sage Zhang MD 10/07/2024 15:01 Sage Zhang MD in OV 10/07/2024 15:01
--- OUTSIDE RECORDS SUMMARY | 2024-10-07 08:00 | XMS_ITS | Clinical Summary ---
Author Organization [facility] Address [address] [place] [address] Care Team Providers Care Tmd Teacher Name Role Phone Sixto Rosen MD Primary Care Provider [phone] Source Comments This information has been disclosed [...] therelease of HIV test results or diagnoses. [id number] Allergies No known active allergies Medications [...] of Treatment Not on file Care Teams Tmd Teacher Relationship Specialty Start Date End Date Sixto Rosen MD [address] [place] [place] [address] PCP - General Emergency Medicine 02/04/20
--- OUTSIDE RECORDS SUMMARY | 2024-10-07 08:00 | XMS_ITS | Clinical Summary ---
Author Organization [facility] Address [address] [id number] Care Team Providers Care Ferry Terminal Agent Name Role Phone Sixto Rosen MD Primary Care Provider [phone] Allergies No known active allergies Medications No [...] 07/28/2020 Sigmoidoscopy 07/28/2020 [facility]-Colorectal Cancer Screening 07/28/2020 [id number] Vaccine ( season) 2023 11/20/2020, 10/30/2020 [facility]-Influenza [...] age to complete this topic Care Teams Ferry Terminal Agent Relationship Specialty Start Date End Date Sixto Rosen MD [address] [place] [address] [facility] - General 07/10/20
== END 2024-10-07 23:59 | disposition home or self-care (01) ==
LOC: RAD 07:59
PROVIDERS: PCP Obstetrics & Gynecology; Visit Provider Obstetrics & Gynecology
DX: N93.9 Abnormal uterine and vaginal bleeding, unspecified (principal); Z12.31 Encounter for screening mammogram for malignant neoplasm of breast; D25.9 Leiomyoma of uterus, unspecified
CPT/HCPCS: 76830; 77063; 77067

== ENCOUNTER 2024-12-04 12:26 | Outpatient (CLI) | payer MEDICAID, SELFPAY ==
--- NOTE | 2024-12-04 12:29 | CT_ITS ---
FINAL REPORT TECHNIQUE: Axial images of the chest was performed with and without contrast. Reconstructed images were obtained and reviewed. This study was performed with techniques to keep radiation doses as low as reasonably achievable, (ALARA). Individualized dose reduction techniques using automated exposure control or adjustment of mA and/or kV according to the patient's size were employed. CLINICAL HISTORY: PERSISTENT COUGH/ HX NICOTINE FINDINGS: There is no evidence of lymphadenopathy. There is no pleural or pericardial effusion. The heart is normal in size. There is left lower lobe subpleural 5 mm nodule on series 4, image 63. There is a 4 mm nodule just posterior to the left major fissure well-seen on image 30. There is a focal ground glass opacity in the anterior right upper lobe. Subpleural nodule along the right minor fissure measures 4 mm on series 4, image 47. Limited images of the upper abdomen reveal fatty liver. IMPRESSION: Focal ground glass opacity in the right upper lobe, could be infectious or inflammatory. This can be followed if indicated. Bilateral subcentimeter pulmonary nodules. Recommend 6 to 12-month follow-up as per Fleischner criteria. Reviewed, Interpreted and Dictated by Kiara Ramirez MD Transcribed by Keyonna Womack Authenticated and [facility]
[2024-12-04 12:58] LABS: Blood Urea Nitrogen 9 mg/dl (7-17); Creatinine,Serum 0.90 mg/dl (0.52-1.04); Estimated Glomerular Filt Rate 67 ml/min (>60); GFR (African American) 81 ML/MIN (>60)
[2024-12-04] MEDS: IOPAMIDOL-370 (76%);100ML BOTTLE 75 ML IV (13:34)
[2024-12-04] MEDS: SODIUM CHLORIDE 0.9% 10ML SYR (RAD ONLY) 10 ML IV (13:34)
== END 2024-12-04 23:59 | disposition home or self-care (01) ==
LOC: RAD 12:26
PROVIDERS: PCP Internal Medicine Adolescent Medicine; Visit Provider Internal Medicine Adolescent Medicine
DX: R91.8 Other nonspecific abnormal finding of lung field (principal); R05.3 Chronic cough; Z87.891 Personal history of nicotine dependence
CPT/HCPCS: 36415; 71270; 82565; 84520; Q9967

== ENCOUNTER 2025-01-15 11:32 | Outpatient (CLI) | payer MEDICAID, SELFPAY ==
--- OUTSIDE RECORDS SUMMARY | 2025-01-15 12:49 | XMS_ITS | Clinical Summary ---
Author Organization [facility] Address [address] [place] [address] Care Team Providers Care Bobbin Winder Name Role Phone Sixto Rosen MD Primary Care Provider [phone] Source Comments This information has been disclosed [...] therelease of HIV test results or diagnoses. [id number] Allergies No known active allergies Medications [...] of Treatment Not on file Care Teams Bobbin Winder Relationship Specialty Start Date End Date Sixto Rosen MD [address] [place] [address] PCP - General Emergency Medicine 02/04/20
--- OUTSIDE RECORDS SUMMARY | 2025-01-15 12:49 | XMS_ITS | Clinical Summary ---
Author Organization [facility] Address [address] [id number] Care Team Providers Care Associate Director Of Development Name Role Phone Sixto Rosen MD Primary Care Provider [phone] Allergies No known active allergies Medications No [...] [facility]-HIV Screening 1975 [facility]-Hepatitis C Screening 1975 [facility]-Infant/Child/Adol SDOH Screenings 1975 [facility]- SDOH Screenings 07/28/1993 [facility]-Adult SDOH Screenings 07/28/1993 [facility]-DTaP,Tdap,and Td Vaccine s (1 - Tdap) 07/28/1994 [facility]-Hepatitis B Vaccines (1 of 3 - 19+ 3-dose series) 07/28/1994 [facility]-Pap Smear 07/28/1996 [facility]-Cervical Cancer Screening 07/28/2005 [facility]-HPV/Cotest 07/28/2005 CT Colonography 07/28/2020 Colonoscopy 07/28/2020 FIT-DNA 07/28/2020 FIT 07/28/2020 FOBT 07/28/2020 Sigmoidoscopy 07/28/2020 [facility]-Colorectal Cancer Screening 07/28/2020 [id number] Vaccine (3 - 2024- season) 2024 11/20/2020, 10/30/2020 [facility]-Influenza Vaccine (#1) 10/28/202412/11, 03/13/2018 [...] on patient's age to complete this topic [facility]-Pneumococcal Vaccine: Pediatrics (0 to 5 Years) and At-Risk Patients (6 to 49 Years) Aged Out No longer eligible b ased on patient's age to complete this topic [facility]-Rotavirus Vaccines Aged Out No lo nger eligible based on patient's age to complete this topic Care Teams Associate Director Of Development Relationship Specialty Start Date End Date Sixto Rosen MD NPI: [id number] [place], [place] [id number] PCP - General 07/10/20
[2025-01-15 18:33] LABS: 25-OH Vitamin D, Total 53.7 ng/mL (30-100)
== END 2025-01-15 23:59 | disposition home or self-care (01) ==
LOC: LAB 11:33
PROVIDERS: PCP Internal Medicine Adolescent Medicine; Visit Provider Obstetrics & Gynecology
DX: E55.9 Vitamin D deficiency, unspecified (principal); G47.00 Insomnia, unspecified
CPT/HCPCS: 36415; 82306